=== PATIENT | male | born 2000 | race Caucasian/White ===

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

== ENCOUNTER 2022-10-23 08:25 | Emergency (ER) | payer SELFPAY ==
[2022-10-23 08:37] VITALS: BP 147/80; PULSE 94; RESP 19; TEMP 36.5; O2SAT 100
--- NOTE | 2022-10-23 10:32 | PC.NURSE ---
called at 1025- no answer called at 1032- no answer
== END 2022-10-23 10:25 | disposition left against medical advice (07) ==
LOC: ANHED 11:03
DX: K92.0 Hematemesis (principal)
CPT/HCPCS: 99199

== ENCOUNTER 2023-03-24 16:10 | Emergency (ER) | payer SELFPAY ==
[2023-03-24 16:12] VITALS: BP 134/65; PULSE 96; RESP 16; TEMP 36.8; O2SAT 95
--- NOTE | 2023-03-24 17:06 | ED.GENADULT ---
HPI - General Adult General Chief complaint: Skin/Abscess/Foreign Body Stated complaint: LEFT FOREARM ABCESS Time Seen by Provider: 03/24/23 16:36 Source: patient Mode of arrival: ambulatory Limitations: no limitations History of Present Illness HPI narrative: This is a 23-year-old male who presents to the ED with chief complaint of a left forearm lesion x2 months. Patient states that he has not had any pain with this. He just wants to get it checked out today. He is concerned for abscess. He has a history of meth use. He tells me his last use was a week and a half ago. He was told that if he used a needle and missed the vein he might get an abscess. He states the area is a little red but the redness has not spread. He states there was some pain in the beginning but he does not have any pain now. Denies any fevers, chills, nausea, vomiting. Denies any spreading redness. Related Data Allergies Allergy/AdvReac Type Severity Reaction Status Date / Time No Known Allergies Allergy Mild Verified 03/24/23 16:40 Review of Systems Review of Systems: CONSTITUTIONAL: Denies fever, chills, or sweats. EYES: Denies visual changes, redness, or discharge. ENT: Denies rhinorrhea, congestion, sore throat, or otalgia. CARDIOVASCULAR: Denies chest pain, palpitations, or edema. RESPIRATORY: Denies cough or dyspnea. GASTROINTESTINAL: Denies abdominal pain, nausea, vomiting, or diarrhea. GENITOURINARY: Denies dysuria or hematuria. SKIN: See HPI MUSCULOSKELETAL: Denies back pain, joint pain, or myalgia. NEUROLOGIC: Denies headache, numbness, dizziness, or weakness. PSYCHIATRIC: Denies anxiety or depression. [facility] Social History Social History Gender identity (if verbalized by the patient): Male Exam Narrative: GENERAL: Well-appearing, well-nourished, and in no acute distress. HEAD: Normocephalic, atraumatic. EYES: PERRLA and EOMI. ENT: Nares clear, no rhinorrhea or epistaxis. Mucous membranes moist. Oropharynx without tonsillar hypertrophy exudate or other lesions. NECK: Supple. No adenopathy or masses. CHEST: No respiratory distress. Clear to auscultation. No wheezes rales or rhonchi HEART: Regular rate and rhythm. No murmur heard. Normal peripheral pulses. ABDOMEN: Soft, nontender, nondistended, normal active bowel sounds. MSK: Normal range of motion. No edema. SKIN: Slight area of induration and redness to the left dorsal forearm. No fluctuance. It is nontender. There is no spreading redness around the area and no streaking redness. NEURO: Alert and oriented x3. No focal deficits. PSYCH: Normal mood and affect. Course Vital Signs Vital signs: Vital Signs Temperature 98.3 F 03/24/23 16:12 Pulse Rate 96 03/24/23 16:12 Respiratory Rate 16 03/24/23 16:12 Blood Pressure 134/65 03/24/23 16:12 Pulse Oximetry 95 03/24/23 16:12 Oxygen Delivery Room Air 03/24/23 16:12 Temperature 98.3 F 03/24/23 16:12 Pulse Rate 96 03/24/23 16:12 Respiratory Rate 16 03/24/23 16:12 Blood Pressure 134/65 03/24/23 16:12 Pulse Oximetry 95 03/24/23 16:12 Oxygen Delivery Room Air 03/24/23 16:12 Medical Decision Making MDM Narrative Medical decision making narrative: This is a 23-year-old male presents to the ED with chief complaint of left forearm skin lesion. Vitals are stable. Afebrile. There is an area of induration and redness to the forearm. However there is no pain. There is no fluctuance. Lesion may be cystic in nature. I attempted to ultrasound and did not drain however there is only is a very small pocket of fluid noted on the ultrasound. I was unable to drain the lesion. He will be started on Keflex for any potential cellulitis. Instructed to take this to the full course and follow-up with PCP provided in the paperwork. Should reported measures discussed and return precautions given. Patient is understanding and agreea
[2023-03-24] MEDS: LIDO 1%/EPINEPHRINE 1:100,000 10 ML VIAL (17:10)
[2023-03-24 18:06] VITALS: BP 127/79; PULSE 68; O2SAT 99
== END 2023-03-24 18:08 | disposition home or self-care (01) ==
PROVIDERS: Emergency Provider Physician Assistant
DX: L03.114 Cellulitis of left upper limb (principal)
CPT/HCPCS: 99283